=== PATIENT | female | born 1960 | race Caucasian/White ===

== ENCOUNTER 2016-09-26 12:18 | Day surgery (SDC) | payer BC ==
[2016-09-26] MEDS ORDERED: PROPOFOL 10 MG/ML VIAL IV ONE (14:00)
[2016-09-26] MEDS ORDERED: LIDOCAINE 2% MDV (20MG/ML) 20ML VIAL IV ONE (14:00)
[2016-09-26] MEDS ORDERED: MIDAZOLAM HCL 2MG/2ML VIAL IV ONE (14:00)
--- NOTE | 2016-09-28 12:07 | Operative Note ---
DATE OF SURGERY: 09/26/2016 OPERATION: COLONOSCOPY with cold forceps polypectomy. PREOPERATIVE DIAGNOSIS: Family history of colon cancer. POSTOPERATIVE DIAGNOSES: 1. Sigmoid diverticulosis. 2. Transverse colon polyp. PROCEDURE: After informed consent was obtained from the patient, she was placed in the left lateral decubitus position in the endoscopy suite. She was sedated and monitored by the department of anesthesia. Digital rectal exam was unremarkable. A well-lubricated [id number] colonoscope was inserted into the rectum and advanced to the cecum. The cecum and cecal bulb were unremarkable. The preparation quality was good to excellent. The ileocecal valve, appendiceal orifice, cecal cap, and ascending colon were unremarkable. There was a diminutive transverse colon polyp removed with a cold forceps. The remainder of the transverse colon and descending colon were unremarkable. The sigmoid colon did reveal a few small diverticula. No polyps or inflammation was seen. The rectum was unremarkable in forward and in J-turn views. The endoscope was straightened, the rectal ampulla deflated, and the endoscope was removed. RECOMMENDATIONS: The patient should follow a high-fiber diet. She will require a repeat exam in 3-5 years pending tissue histology. At this point I believe 5 years will most likely be the recommendation but we will await the results of tissue histology. As always, thank you for allowing me to participate in the healthcare of your patients. CC: Dr. Gracie MURPYH
== END 2016-09-26 14:46 | disposition home or self-care (01) ==
LOC: HOP 12:18
PROVIDERS: ATTEND Internal Medicine Gastroenterology
DX: Z12.11 Encounter for screening for malignant neoplasm of colon (principal); D12.3 Benign neoplasm of transverse colon; E78.00 Pure hypercholesterolemia, unspecified

== ENCOUNTER 2017-10-24 08:05 | Emergency (ER) | payer BC ==
--- NOTE | 2017-10-24 08:27 | Emergency Department Record ---
History of Present Illness - General Chief complaint: Rash Stated complaint: RASH LEFT SIDE PAINFUL Time Seen by Provider: 10/24/17 08:19 Source: Patient Mode of Arrival: Ambulatory Limitations: No limitations - History of Present Illness Initial comments: 57 yo female presents with a pain rash on the left side of the chest that wraps around. The rash has developed over the last 4-5 days. No weeping at this point. No fevers. No chills. No cough or shortness of breath. She is on steroids for PMR. No history of prior shingles. No NVD. MD complaint: Rash -: Days(s) (4) Location: Chest (left) Severity: Moderate Quality: Aching Consistency: Constant Improves with: None Worsens with: Other (any touching or light contact is painful) Context: None Associated symptoms: Denies other symptoms Treatments Prior to Arrival: NSAID - Related Data Home Medications Medication Instructions Recorded Confirmed Last Taken Atorvastatin Calcium 10 mg PO 10/24/17 10/23/17 21:00 Buspirone HCl [Buspar] 7.5 mg PO BID 10/24/17 10/24/17 10/24/17 Calcium Carbonate [Calcium] 1,200 mg PO 10/24/17 10/23/17 21:00 Cyclobenzaprine HCl 10 mg PO 10/24/17 10/23/17 21:00 Diclofenac Sodium 75 mg PO BID 10/24/17 10/24/17 10/23/17 Prednisone 17.5 mg PO 10/24/17 10/24/17 07:00 Previous Rx's Medication Instructions Recorded Famciclovir 500 mg PO TID #21 tablet 10/24/17 Hydrocodone/APAP 5/325Mg [[place] 1 each PO Q6H #20 tab 10/24/17 5Mg/325Mg] Lidocaine Patch [Lidoderm] 1 ea TOP Q12H #15 patch 10/24/17 Allergies Allergy/AdvReac Type Severity Reaction Status Date / Time Penicillins Allergy HIVES Verified 05/14/16 18:11 Sulfa (Sulfonamide Allergy HIVES Verified 05/14/16 18:11 Antibiotics) Review of Systems Constitutional: Denies: Chills, Fever, Malaise Eyes: Denies: Vision change ENT: Denies: Congestion, Throat pain Respiratory: Denies: Cough, Dyspnea Cardiovascular: Denies: Chest pain Endocrine: Denies: Fatigue, Polydipsia, Polyuria Gastrointestinal: Denies: Abdominal pain, Diarrhea, Nausea, Vomiting Musculoskeletal: Denies: Arthralgia, Joint swelling, Myalgia, Neck pain Skin: Reports: Rash. Denies: Bruising, Change in color Neurological: Denies: Headache, Tingling Psychiatric: Denies: Anxiety Hematological/Lymphatic: Denies: Blood Clots, Easy bleeding, Easy bruising, Swollen glands Past Medical History - SOCIAL HISTORY Smoking Status: Current every day smoker - RESPIRATORY Hx Respiratory Disorders: No - CARDIOVASCULAR Hx Cardio Disorders: No - NEURO Hx Neuro Disorders: No - GI Hx GI Disorders: Yes Hx Reflux: Yes - Hx Genitourinary Disorders: No - ENDOCRINE Hx Endocrine Disorders: No - MUSCULOSKELETAL Hx Musculoskeletal Disorders: Yes Hx Arthritis: Yes Comment:: recently dx'd with autoimmune disorder-not identified which one - PSYCH Hx Psych Problems: Yes Hx Anxiety: Yes Hx Depression: Yes - HEMATOLOGY/ONCOLOGY Hx Hematology/Oncology Disorders: No Family Medical History Hx Cancer: Mother *Cancer Comment: Ufb-[id number] polyp Physical Exam - General General Appearance: Alert, Oriented x3, Cooperative, No acute distress Limitations: No limitations - Head Head exam: Normal inspection - Eye Eye exam: Normal appearance, PERRL. negative: Conjunctival injection, Scleral icterus - ENT ENT exam: Normal exam, Mucous membranes moist Ear exam: Normal external inspection Nasal Exam: Normal inspection Mouth exam: Normal external inspection Throat exam: Normal inspection - Neck Neck exam: Normal inspection, Full ROM. negative: Lymphadenopathy, Tenderness - Respiratory Respiratory exam: Normal lung sounds bilaterally, Chest wall tenderness. negative: Accessory muscle use, Decreased breath sounds, Respiratory distress, Rhonchi, Stridor, Wheezes - Cardiovascular Cardiovascular Exam: Regular rate, Normal rhythm, Normal heart sounds Peripheral Pulses: 2+: Radial (R), Radial (L) - GI/Abdominal GI/Abdominal exam: Soft. negative: Tenderness - Rectal Rectal exam: Deferred - exam: Deferred - Extremities Extremities exam: Normal inspection, Full ROM, Normal capillary refill. negative: Tenderness - Back Back exam: Denies: CVA tenderness (R), CVA tenderness (L) Image of Body Front/Back: 1 - distribution of rash - Neurological Neurological exam: Alert, Oriented X3 - Psychiatric Psychiatric exam: Normal affect, Normal mood - Skin Skin exam: Erythema Type of lesion: Rash Distribution of rash: Chest (Left) Description of rash: Erythematous, Macular, Papular, Tenderness. negative: Petechial, Purpuic Course - Reevaluation(s) Reevaluation #1: 10/24/17 08:22 Well appearing. No systemic symptoms We discussed her steroid use. 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 Prescriptions: Famciclovir 500 mg PO TID #21 tablet Hydrocodone/APAP 5/325Mg [[place] 5Mg/325Mg] 1 each PO Q6H #20 tab Lidocaine Patch [Lidoderm] 1 ea TOP Q12H #15 patch Forms: Patient Portal Access Time of Disposition: 08:24 Quality - Quality Measures Quality Measures: N/A - Blood Pressure Screening Does Patient Have Any of the Following: No Blood Pressure Classification: Pre-Hypertensive BP Reading Systolic Measurement: 131 Diastolic Measurement: 87 Screening for High Blood Pressure: < Pre-Hypertensive BP, F/U Documented > [ [id number]] Pre-Hypertensive Follow-up Interventions: Referral to alternative/primary care provider.
[2017-10-24] MEDS ORDERED: HYDROCODONE/APAP 7.5/325MG TABLET PO ONE (08:30)
== END 2017-10-24 08:41 | disposition home or self-care (01) ==
LOC: ER 08:05
DX: B02.8 Zoster with other complications (principal); R07.89 Other chest pain; F17.210 Nicotine dependence, cigarettes, uncomplicated
CPT/HCPCS: 99282